=== PATIENT | male | born 1955 | race Caucasian/White ===

== ENCOUNTER 2021-07-20 14:31 | Emergency (ER) | payer MEDICARE ==
[2021-07-20 14:42] VITALS: RESP 18
[2021-07-20 15:33] VITALS: TEMP 98.7
[2021-07-20] MEDS ORDERED: SODIUM CHLORIDE 0.9% 1,000 ML IV STA (15:40)
[2021-07-20] MEDS ORDERED: LORazepam 2 MG/ML INJ IV STA (16:23)
[2021-07-20 16:27] LABS: ALT 18 U/L (4-49); AST 29 U/L (17-59); African American GFR (CKD) >90 (>60 ml/min/1.73 sqM); Albumin 4.6 g/dL (3.5-5.0); Alkaline Phosphatase 112 U/L (38-126); Anion Gap 13 mmol/L; Blood Urea Nitrogen 14 mg/dL (9-20); Calcium 9.2 mg/dL (8.4-10.2); Carbon Dioxide 20 mmol/L (22-30); Chloride 104 mmol/L (98-107); Glucose 247 mg/dL (74-99); Magnesium 1.9 mg/dL (1.6-2.3); Non-African American GFR(CKD) >90 (>60 ml/min/1.73 sqM); Sodium 137 mmol/L (137-145); Total Bilirubin 0.8 mg/dL (0.2-1.3)
--- NOTE | 2021-07-20 16:27 | ED ---
General Adult HPI - General Source: EMS, RN notes reviewed Mode of arrival: EMS Limitations: no limitations <Matteo Clemente - Last Filed: 07/20/21 16:24> <Ruddy Hardwick - Last Filed: 07/20/21 21:40> - General Chief complaint: ENT Stated complaint: Nose bleed/high BP Time Seen by Provider: 07/20/21 15:30 - History of Present Illness Initial comments: 66-year-old male without any medical history presents to the emergency room for a chief complaint of nosebleeds. Patient states he has had nosebleeds intermi ttently for years. States he was told by Dr. Carrion to use Afrin when they start. For the past 4 days patient has been using 3 sprays in each nostril 3 times a day. Patient presented today for nosebleed as well. Patient's nosebleed did resolve prior to arrival. Patient denies any other compla ints.Patient has no other complaints at this time including shortness of breath, chest pain, abdominal pain, nausea or vomiting, headache, or visual changes. (Matteo Clemente) - Related Data Previous Rx's Medication Instructions Recorded Sodium Chloride [Little Remedies 1 spray EA NOSTRIL BID #30 ml 07/20/21 [place]] amLODIPine [Norvasc] 2.5 mg PO DAILY 30 Days #30 tablet 07/20/21 Allergies Allergy/AdvReac Type Severity Reaction Status Date / Time No Known Allergies Allergy Verified 07/20/21 14:41 Review of Systems ROS Other: All systems not noted in ROS Statement are negative. <Matteo Clemente - Last Filed: 07/20/21 16:24> ROS Other: All systems not noted in ROS Statement are negative. <Ruddy Hardwick - Last Filed: 07/20/21 21:40> ROS Statement: Those systems with pertinent positive or pertinent negative responses have been documented in the HPI. Past Medical History Past Medical History: No Reported History History of Any Multi-Drug Resistant Organisms: None Reported Past Surgical History: No Surgical Hx Reported Past Psychological History: No Psychological Hx Reported Smoking Status: Never smoker Past Alcohol Use History: None Reported Past Drug Use History: None Reported <Matteo Clemente - Last Filed: 07/20/21 16:24> General Exam Limitations: no limitations General appearance: alert, in no apparent distress Head exam: Present: atraumatic Eye exam: Present: normal appearance, PERRL, EOMI. Absent: scleral icterus, conjunctival injection ENT exam: Present: normal exam, mucous membranes moist Neck exam: Present: normal inspection, full ROM. Absent: tenderness Respiratory exam: Present: normal lung sounds bilaterally. Absent: respiratory distress, wheezes Cardiovascular Exam: Present: regular rate, normal rhythm, normal heart sounds GI/Abdominal exam: Present: soft, normal bowel sounds. Absent: distended, tenderness Neurological exam: Present: alert <Matteo Clemente - Last Filed: 07/20/21 16:24> Course Vital Signs 07/20/21 07/20/21 07/20/21 14:36 15:29 17:23 Temperature 98.7 F Pulse Rate 124 H 122 H 118 H Respiratory 18 18 18 Rate Blood Pressure 215/113 173/96 178/95 O2 Sat by Pulse 98 99 98 Oximetry 07/20/21 07/20/21 17:41 18:04 Temperature Pulse Rate 125 H 120 H Respiratory 18 18 Rate Blood Pressure 199/102 159/90 O2 Sat by Pulse 98 98 Oximetry EKG Findings - EKG Comments: EKG Findings:: Sinus tachycardia, ventricular rate 123, [place] interval 156, QTc 478 <Matteo Clemente - Last Filed: 07/20/21 16:24> Medical Decision Making <Matteo Clemente - Last Filed: 07/20/21 16:24> - Lab Data Result diagrams: 07/20/21 17:00 07/20/21 16:10 <Ruddy Hardwick - Last Filed: 07/20/21 21:40> - Medical Decision Making She presents hypertensive and tachycardic. Patient does not have a history of hypertension but also has not seen a primary care doctor in 20 years. Hypertension could be related to excessive use of Afrin. EKG shows a sinus tachycardia with a ventricular rate of 123. (Matteo Clemente) Patient was signed out to me by mid-level provider. Pending reevaluation of blood pressure. Patient came in for acute nosebleed as well as asymptomatic hypertension otherwise. Is also found to be mildly tachycardic. States he is extremely nervous. States she is not on any medications. Basic labs were obtained and were unremarkable. Patient is not anemic. Does have 4+ glucose in urine but no signs of DKA or anything else on labs. He is otherwise asym ptomatic and denies any wrist pain, shortness of breath, headaches, numbness, weakness, lightheadedness. His no belly pain, nausea, vomiting, diarrhea. He would like to go home. Repeat blood pressure is improved to 159/90. Heart rate is also mildly improved. He states it has been high previously. He reiterates that he would like to return home. I believe this is reasonable. I do want her to follow-up with ENT which she was in agreement with. This bleeding is stopped at this time. I will advise him to use saline nose spray at home. I will also provide him with a low dose antihypertensive medication to take at home until he can follow-up with his PCP in the upcoming weeks. He was in agreement with this plan. EKG was obtained and showed normal sinus tachycardia without any signs of acute ischemia. He remains symptomatic at this time. Strict return precautions were provided to the patient. I will provide the patient with a prescription for saline nose spray, amlodipine 2.5 mg daily. I instructed the patient to follow up with their PCP in the next 3 days. I explained that the patient should return to the emergency department if they experience any worsening symptoms. Strict return precautions were discussed with the patient. The patient expressed understanding of these instructions. I answered all questions that the patient had. The patient was discharged home in good condition with their prescriptions and follow up information. (Ruddy Hardwick) - Lab Data Lab Results 07/20/21 07/20/21 07/20/21 Range/Units 16:10 17:00 17:33 WBC 11.7 H (3.8-10.6) k/uL RBC 5.22 (4.30-5.90) m/uL Hgb 16.2 (13.0-17.5) gm/dL Hct 49.0 (39.0-53.0) % MCV 94.0 (80.0-100.0) fL MCH 31.0 (25.0-35.0) pg MCHC 33.0 (31.0-37.0) g/dL RDW 12.7 (11.5-15.5) % Plt Count 176 (150-450) k/uL MPV 9.3 Neutrophils % 83 % Lymphocytes % 9 % Monocytes % 5 % Eosinophils % 1 % Basophils % 0 % Neutrophils # 9.8 H (1.3-7.7) k/uL Lymphocytes # 1.1 (1.0-4.8) k/uL Monocytes # 0.6 (0-1.0) k/uL Eosinophils # 0.1 (0-0.7) k/uL Basophils # 0.0 (0-0.2) k/uL Sodium 137 (137-145) mmol/L Potassium 5.0 (3.5-5.1) mmol/L Chloride 104 (98-107) mmol/L Carbon Dioxide 20 L (22-30) mmol/L Anion Gap 13 mmol/L BUN 14 (9-20) mg/dL Creatinine 0.50 L (0.66-1.25) mg/dL Est GFR (CKD-EPI)AfAm >90 (>60 ml/min/1.73 sqM) Est GFR (CKD-EPI)NonAf >90 (>60 ml/min/1.73 sqM) Glucose 247 H (74-99) mg/dL Calcium 9.2 (8.4-10.2) mg/dL Magnesium 1.9 (1.6-2.3) mg/dL Total Bilirubin 0.8 (0.2-1.3) mg/dL AST 29 (17-59) U/L ALT 18 (4-49) U/L Alkaline Phosphatase 112 (38-126) U/L Total Protein 8.0 (6.3-8.2) g/dL Albumin 4.6 (3.5-5.0) g/dL Urine Color Yellow Urine Appearance Clear (Clear) Urine pH 5.0 (5.0-8.0) Ur Specific [place] 1.032 (1.001-1.035) Urine Protein Negative (Negative) Urine Glucose (UA) 4+ H (Negative) Urine Ketones 2+ H (Negative) Urine Blood Negative (Negative) Urine Nitrite Negative (Negative) Urine Bilirubin Negative (Negative) Urine Urobilinogen <2.0 (<2.0) mg/dL Ur Leukocyte Esterase Negative (Negative) Disposition <Matteo Clemente - Last Filed: 07/20/21 16:24> Is patient prescribed a controlled substance at d/c from ED?: No <Ruddy Hardwick - Last Filed: 07/20/21 21:40> Clinical Impression: Bleeding nose, Asymptomatic hypertension, Tachycardia Disposition: HOME SELF-CARE Condition: Fair Instructions (If sedation given, give patient instructions): Nosebleed (ED), Hypertension (ED) Prescriptions: Sodium Chloride [Little Remedies [place]] 1 spray EA NOSTRIL BID #30 ml amLODIPine [Norvasc] 2.5 mg PO DAILY 30 Days #30 tablet Referrals: Dinora Luis MD [Primary Care Provider] - 1-2 days
[2021-07-20] MEDS ORDERED: hydrALAZINE HCL 20 MG/ML 1 ML VIAL IVP STA ×2 (16:40→17:47)
[2021-07-20 17:14] LABS: Basophils % (A) 0 %; Eosinophils # (A) 0.1 k/uL (0-0.7); Eosinophils % (A) 1 %; HGB 16.2 gm/dL (13.0-17.5); Lymphocytes # (A) 1.1 k/uL (1.0-4.8); Lymphocytes % (A) 9 %; Mean Platelet Volume 9.3; Monocytes # (A) 0.6 k/uL (0-1.0); Monocytes % (A) 5 %; Neutrophils # (A) 9.8 k/uL (1.3-7.7); Neutrophils % (A) 83 %; Platelet Count 176 k/uL (150-450); RBC 5.22 m/uL (4.30-5.90); RDW 12.7 % (11.5-15.5); WBC 11.7 k/uL (3.8-10.6)
[2021-07-20 17:39] LABS: Appearance,Urine Clear (Clear); Bilirubin,Urine Negative (Negative); Blood,Urine Negative (Negative); Color,Urine Yellow; Glucose,Urine (UA) 4+ (Negative); Leukocyte Esterase,Urine Negative (Negative); Nitrite,Urine Negative (Negative); Protein,Urine Negative (Negative); Specific Gravity,Urine 1.032 (1.001-1.035); Urobilinogen,Urine <2.0 mg/dL (<2.0)
[2021-07-20 17:46] LABS: Ketones,Urine 2+ (Negative)
--- NOTE | 2021-07-20 17:47 | XR ---
EXAMINATION TYPE: XR chest 2V DATE OF EXAM: 07/20/2021 COMPARISON: NONE HISTORY: Tachycardia TECHNIQUE: 2 views FINDINGS: Heart and mediastinum are normal. Lungs are clear. Diaphragm is normal. Bony thorax is inta ct. IMPRESSION: Normal chest.
[2021-07-20 18:04] VITALS: BP 159/90; PULSE 120
== END 2021-07-20 18:40 | disposition home or self-care (01) ==
LOC: EC 14:31
DX: R04.0 Epistaxis (principal); I10 Essential (primary) hypertension; R00.0 Tachycardia, unspecified
CPT/HCPCS: 36415; 93005; 80053; 83735; 85025; 81003; 71046; 99285; 96374; 96375; 96376; J2060; J0360

== ENCOUNTER → 2022-03-25 | Outpatient (CLI) | payer MEDICARE, OTHER ==
--- NOTE | 2022-03-25 12:14 | US ---
EXAMINATION TYPE: US carotid duplex BILAT DATE OF EXAM: 03/25/2022 COMPARISON: NONE CLINICAL HISTORY: E11.65 TYPE 2 DIABETES MELLITUS WITH HYPERGLYCEMIA. Dizzyness TECHNIQUE: Carotid duplex ultrasound examination. Indirect Doppler criteria was utilized. FINDINGS: EXAM MEASUREMENTS: RIGHT: Peak Systolic Velocity (PSV) cm/sec ----- Right CCA: 76.4 ----- Right ICA: 85.2 ----- Right ECA: 117.1 ICA/CCA ratio: 1.1 RIGHT: End Diastole cm/sec ----- Right CCA: 16.9 ----- Right ICA: 21.2 ----- Right ECA: 0 LEFT: Peak Systolic Velocity (PSV) cm/sec ----- Left CCA: 76.4 ----- Left ICA: 89.5 ----- Left ECA: 88.1 ICA/CCA ratio: 1.2 LEFT: End Diastole cm/sec ----- Left CCA: 25.3 ----- Left ICA: 22.7 ----- Left ECA: 8.1 VERTEBRALS (direction of flow): Right Vertebral: Antegrade Left Vertebral: Antegrade Rhythm: Normal RATE EXAMINER NOTES: No significant stenosis seen IMPRESSION: No evidence for hemodynamically significant stenosis. Criteria for Assigning % of Stenosis / Diameter reduction (Estimation based on the indirect measurements of the internal carotid artery velocities (ICA PSV). 1. Normal (no stenosis)=ICA PSV < 125 cm/s: ratio < 2.0: ICA EDV<40 cm/s. 2. Less than 50% stenosis=ICA PSV < 125 cm/s: ratio < 2.0: ICA EDV<40 cm/s. 3. 50 to 69% stenosis=ICA PSV of 125 to 230 cm/s: ration 2.0 ? 4.0: ICA EDV 40-100 cm/s. 4. Greater than 70% stenosis to near occlusion= ICA PSV > 230 cm/s: ratio > 4.0: ICA EDV > 100 cm/s. 5. Near occlusion= ICA PSV velocities may be low or undetectable: variable ratio and ICA EDV. 6. Total occlusion=unable to detect flow.
== END | disposition home or self-care (01) ==
LOC: RADUSWWP 10:38
PROVIDERS: ATTEND Internal Medicine
DX: E11.65 Type 2 diabetes mellitus with hyperglycemia (principal); R42 Dizziness and giddiness
CPT/HCPCS: 93880